=== PATIENT | female | born 1965 | race Two or more races ===

== ENCOUNTER 2018-01-28 12:59 | Day surgery (SDC) | payer BC, OTHER ==
[~2018-01-28 12:59] MED LIST: CEFAZOLIN 1 GM/D5W RTU 1 GM/50 ML RTUPB IV PRN; DEXAMETHASONE SOD PHOSPHATE INJ 4 MG/1 ML VIAL ONE; ONDANSETRON HCL INJ/PF 4 MG/2 ML SDV ONE; ROCURONIUM BROMIDE INJ 50 MG/5 ML VIAL IV ONE; SUCCINYLCHOLINE CHLORIDE INJ 200 MG/10 ML VIAL ONE
[2018-01-28] MEDS ORDERED: CEFAZOLIN 1 GM/D5W RTU 1 GM/50 ML RTUPB IV ONE (13:16)
[2018-01-28 14:03] LABS: HEMATOCRIT 37.2 % (36.0-47.0); HEMOGLOBIN 12.8 g/dL (12.0-15.5); MEAN CORPUSCULAR HEMOGLOBIN 32.3 pg (27.0-33.4); MEAN CORPUSCULAR HGB CONC 34.5 g/dL (32.0-36.0); MEAN CORPUSCULAR VOLUME 94 fl (80-97); PLATELET COUNT 284 10^3/uL (150-450); RED BLOOD COUNT 3.97 10^6/uL (3.72-5.28); RED CELL DISTRIBUTION WIDTH 13.3 % (11.5-14.0); WHITE BLOOD COUNT 5.2 10^3/uL (4.0-10.5)
[2018-01-28 14:24] LABS: ALANINE AMINOTRANSFERASE 27 U/L (9-52); ALBUMIN 4.2 g/dL (3.5-5.0); ALKALINE PHOSPHATASE 64 U/L (38-126); AMYLASE 52 U/L (30-110); ANION GAP 12 (5-19); ASPARTATE AMINO TRANSFERASE 23 U/L (14-36); BILIRUBIN,DIRECT 0.3 mg/dL (0.0-0.4); BILIRUBIN,TOTAL 0.6 mg/dL (0.2-1.3); BLOOD UREA NITROGEN 10 mg/dL (7-20); CALCIUM 9.1 mg/dL (8.4-10.2); CARBON DIOXIDE 23 mmol/L (22-30); CHLORIDE 104 mmol/L (98-107); GLUCOSE 89 mg/dL (75-110); POTASSIUM 4.1 mmol/L (3.6-5.0); SODIUM 139.2 mmol/L (137-145); TOTAL PROTEIN 7.5 g/dL (6.3-8.2)
[2018-01-28] MEDS ORDERED: HYDROMORPHONE HCL INJ/PF 2 MG/ML AMPULE ONE (15:29)
[2018-01-28] MEDS ORDERED: FENTANYL CITRATE INJ/PF 250 MCG/5 ML AMPULE ONE (15:29)
[2018-01-28] MEDS ORDERED: ACETAMINOPHEN 1,000 MG/100 ML RTUPB IV ONE (15:30)
[2018-01-28] MEDS ORDERED: MIDAZOLAM 2 MG/2 ML INJ ONE (15:30)
[2018-01-28] MEDS ORDERED: PROPOFOL INJ 200 MG/20 ML VIAL IV ONE (15:30)
[2018-01-28] MEDS ORDERED: BUPIVACAINE HCL 0.5 % INJ/PF 30 ML SDV ONE (15:44)
[2018-01-28] MEDS ORDERED: PROMETHAZINE HCL INJ 25 MG/1 ML VIAL IV PRN ×2 (17:39)
[2018-01-28] MEDS ORDERED: MEPERIDINE HCL/PF INJ 25 MG/1 ML DISP.SYRIN IV PRN (17:39)
[2018-01-28] MEDS ORDERED: OXYCODONE-ACETAMINOPHEN 5-325 MG TABLET PO PRN ×3 (17:39→18:09)
[2018-01-28] MEDS ORDERED: DIPHENHYDRAMINE HCL 50 MG/ML VIAL IV PRN (17:39)
[2018-01-28] MEDS ORDERED: MORPHINE SULFATE 10 MG/ML INJ IV PRN (17:39)
[2018-01-28] MEDS ORDERED: FENTANYL CITRATE INJ/PF 100 MCG/2 ML AMPUL IV PRN ×3 (17:39)
--- NOTE | 2018-01-28 18:09 | Discharge Summary ---
Discharge Summary (SDC) - Discharge Final Diagnosis: cholecystitis Date of Surgery: 01/28/18 Discharge Date: 01/28/18 Condition: Stable Treatment or Instructions: [facility] [address] [place], [place] [address] Discharge Instructions: Laparoscopic Surgery 1. General Information: a. DO NOT DRIVE a car or operate dangerous machinery for 3-4 days or while taking narcotic pain pills. b. DO NOT consume alcohol, tranquilizers, sleeping medications or any non- prescribed medications for 24 hours unless approved by your doctor or as long as taking narcotic prescription medications. c. DO NOT make important decisions or sign any important papers for the first 24 hours after surgery. d. When discharged home the same day of surgery have a responsible person with you for the first night. 2. Activity Restrictions: 2 weeks a. NO heavy lifting, straining abdominal muscles, bending over a lot, yard work, house work, or sports for [address] for 3-4 days or while taking _Percocet_ . c. It is fine to go for walks, up and down steps, ride in a car. d. Elevate your head when sleeping/resting. 3. Treatment: a. You may shower 24 hours after surgery, no baths or swimming for 2 weeks. Remove band-aids or dressings before shower but leave paper strips (steri-strips ) on the skin to fall off on their own. If still on at postoperative visit they will be removed then. b. Drainage of fluid or blood is not unusual from an incision. If occurs, you can clean with peroxide and cotton ball daily and cover with dry gauze until the wound seals. c. If a lot of bleeding occurs, you can hold pressure with a gauze or cloth over the site for 10 minutes and it will usually stop. If bleeding continues you will need to call for possible evaluation in office or emergency room. d. Empty drain when full or every 24 hours, whichever occurs first. Measure daily output and record on paper for follow up visit. 4. Medications: a. _Percocet_ may be taken for pain as needed, one tablet every 6 hours. Stop the narcotic when able since you cannot take it and drive, and they cause constipation. You may switch to plain Tylenol, Advil or Aleve as you transition from the narcotic. Many adults find good pain relief with Advil 600-800 mg three times a day with meals. This can cause indigestion, ulcers, and kidney problems with long-term use. b. You should resume all normal medications unless a change is specified by your doctors. 5. Diet: Begin with clear liquids and may progress to your normal diet if not nauseated. No high fat, high protein foods the day of surgery. 6. The following may occur after laparoscopic surgery: a. Shoulder or upper back ache from retained gas that should resolve in 1-2 days b. Soreness and bruising at incision sites will resolve with time. c. Scrotal swelling (labia in women) and bruising is often seen after hernia surgery. d. Sore throat e. Fatigue may last days to weeks. f. Difficulty urinating may occur and may need to come into emergency room for urinary catheter placement. 7. Notify Physician If: a. Worsening or pain not improved with pain medication b. Persistent nausea and vomiting c. Fever above 101 d. Persistent bleeding or swelling at operative site e. Unable to urinate and uncomfortable bladder 6-8 hours after surgery 8..Follow Up Care: a. Schedule a follow up appointment with your doctor for 2 weeks. In the event of any postoperative problems or questions or you may call the office during business hours or the On-Call physician evenings and weekends at [facility]. [facility] I understand the instructions for my postoperative care as described above and a copy has been given to me. Patient/Significant Other Witness Date Prescriptions: Oxycodone HCl/Acetaminophen [Percocet 5-325 mg Tablet] 1 tab PO ASDIR PRN #20 tab PRN Reason: Referrals: TISHA ARIAS MD [Primary Care Provider] - Discharge Activity: No Lifting Over 10 Pounds, No Lifting/Push/Pulling, Walk Frequently Report the Following to Your Physician Immediately: Nausea, Vomiting, Increase in Pain, Fever over 101 Degrees, Unusual Bleeding, Redness, Drainage-Foul Smelling
--- NOTE | 2018-01-28 18:16 | Operative Report ---
Operative Report DATE OF SURGERY: 01/28/18 PREOPERATIVE DIAGNOSIS: Acute cholecystitis with cholelithiasis POSTOPERATIVE DIAGNOSIS: Same OPERATION: 1. Laparoscopic mobilization of portion of transverse colon from the right lobe of liver. 2. Laparoscopic cholecystectomy. 3. Intra- abdominal drain placement. 4. Extremely difficult modifier SURGEON: ANGELA WEST 1ST MEMBER OF TECHNICAL STAFF: STU AYALA ANESTHESIA: GA TISSUE REMOVED OR ALTERED: 1 gallbladder with contents COMPLICATIONS: None ESTIMATED BLOOD LOSS: 150 cc INTRAOPERATIVE FINDINGS: See below PROCEDURE: After obtaining informed consent, the patient was taken to the operating room. General Anesthesia was induced; the arms were extended, and the abdomen was exposed, and prepped and draped in a sterile fashion. Instrumentation was set up for laparoscopic cholecystectomy. Surgical plan and surgical timeout were conducted. A vertical incision was made above the umbilicus, and a verres needle was inserted uneventfully into the peritoneal cavity. Pneumoperitoneum was established. The verres needle was removed and a 5 mm trocar was inserted and a 5 mm flexible laparoscope was inserted. Visualization of the peritoneal cavity confirmed safe uneventful entry. Under direct visualization 3 additional 5 mm ports were established, one in the subxiphoid position and second in the subcostal position. Intra-abdominal visualization confirmed safe entry of all ports. There were dense adhesions between the proximal transverse colon in the right lobe of the liver. In addition the gallbladder was acutely inflamed, pregangrenous, with the gastroduodenal area stuck to the fundus of the gallbladder Using a combination of whole, electrocautery, and LigaSure dissection, all of these adhesions were taken down. There was a minimal amount of bleeding coming from the liver bed to the right of the gallbladder with a transverse colon was taken down. We also took down adhesions between the falciform ligament and the gallbladder. The gallbladder was aspirated of thick oil like bile using hook cautery dissection, and the suction security orderly. We repositioned our graspers, and got a good look at the infundibulum of the gallbladder. The neck of the gallbladder is junction with the cystic duct, as well as the cystic artery were all dissected out. Visualization here was actually quite good. Photo was taken. The cystic artery was dissected out, surrounded with a right angle clamp, clipped twice proximally once distally divided with scissors. The triangle of Calot was opened widely, photos taken, and the critical view obtained. We got on both right and left sides of the triangle, and we were confident we are about to divide the cystic duct. Photos were taken. The cystic duct was clipped distally, opened, milked of any stones and there were none; we got some bile back, and then we clipped the cystic duct proximally 2 times. The duct was divided completely. We now spent the next hour taking the gallbladder off of the right lobe of the liver bed. This was very difficult due to adhesions, thick inflammatory changes , with a poor plane between the gallbladder and the liver bed. Cautery was used as well as LigaSure dissection. Eventually we have the gallbladder freed off of the right side of the liver. It was placed in an Endobag and brought through the patient through the supraumbilical port site, after stretching the fascia, without spillage of stones. We returned the peritoneal cavity checked for bleeding there was none from a mechanical standpoint. Irrigated the peritoneal cavity out with several liters daily. Recheck for any mechanical bleeding and none could be identified. We reinspected the liver bed. We did place 2 pieces of Surgicel during the case and they remained in contact with the inferior surface of the right liver lobe. We also reinspected the transverse colon it appeared to be intact without injury. Other points of lysis were also inspected and felt to be stable. We returned to the peritoneal cavity check for bleeding, and evidence of bile leak, and there was none. We Confirmed satisfactory placement of clips on cystic duct and cystic artery were secured . At this point we felt the operation was complete. A large Carlos drain was placed through 1 of the lateral port sites and secured to the skin with 2-0 Prolene suture. We did close the supraumbilical port site fascial defect with a [id number] #1 PDS suture under direct visualization using the disposable suture passer. The subcutaneous tissue was then anesthetized with quarter percent Marcaine Sponge and needle counts are correct. All ports removed under direct visualization pneumoperitoneum evacuated, and 5 mm port wounds closed with 3-0 Vicryl suture, benzoin and Steri-Strips. The patient was extubated, and taken to the recovery room in stable condition. The physician farm assistant, Ms. Izaguirre, provided assistance during this case by: Assisting and port insertion, retracting tissue, instillation of local anesthesia and closure of skin incisions. The extremely difficult modifier was used due to the length of the operation the dense adhesions the difficulty the gallbladder from the liver bed acute pregangrenous nature of the gallbladder itself. The operation took nearly 2 hours.
[2018-01-28] MEDS ORDERED: FENTANYL CITRATE INJ/PF 100 MCG/2 ML AMPUL ONE (18:18)
[2018-01-28] MEDS ORDERED: FENTANYL CITRATE INJ/PF 100 MCG/2 ML AMPUL INJ ONE (18:20)
[2018-01-28] MEDS ORDERED: OXYCODONE-ACETAMINOPHEN 5-325 MG TABLET ONE (19:02)
[2018-01-28 20:25] VITALS: BP 116/79
== END 2018-01-28 20:10 | disposition home or self-care (01) ==
LOC: OROUT 12:59
PROVIDERS: ATTEND Surgery
DX: K80.12 Calculus of gallbladder with acute and chronic cholecystitis without obstruction (principal); E78.00 Pure hypercholesterolemia, unspecified; I10 Essential (primary) hypertension; F41.9 Anxiety disorder, unspecified; Z79.899 Other long term (current) drug therapy; Z79.82 Long term (current) use of aspirin
CPT/HCPCS: 36415; 82150; 83690; 85027; 80076; 80048; 88304 ×2; 47562; J2250; J3490 ×2; J0690; J1100; J3010 ×2; J1170; J0330; J2405; J2704; J0131; 790